=== PATIENT | female | born 1965 | race Caucasian/White ===

== ENCOUNTER 2020-10-01 12:48 | Emergency (ER) | payer BC, OTHER ==
[~2020-10-01] VITALS: Ht 157.5 cm; Wt 124.7 kg
[~2020-10-01 12:48] MED LIST: CLONIDINE HCL0.3 M3 PO; LISINOPRIL-HCT1 EAC2 PO; ONDANSETRON HCL4 M2 PO; ZESTRIL20 MG PO
[2020-10-01 12:51] VITALS: BP 174/70
== END 2020-10-01 14:37 | disposition home or self-care (01) ==
LOC: ER 12:48
DX: M25.562 Pain in left knee (principal); I10 Essential (primary) hypertension; Z79.899 Other long term (current) drug therapy; Z88.0 Allergy status to penicillin; W18.39XA Other fall on same level, initial encounter; Y93.K1 Activity, walking an animal; Y92.488 Other paved roadways as the place of occurrence of the external cause; Y99.8 Other external cause status